=== PATIENT | female | born 1990 | race Hispanic/Latino ===

== ENCOUNTER 2025-04-03 15:18 | Emergency (ER) | payer SELFPAY ==
[2025-04-03 15:52] LABS: #Basophils 0.03 10x3/uL (0.0-0.2); #Eosinophils 0.20 10x3/uL (0.0-0.7); #Monocytes 0.54 10x3/uL (0.11-0.59); #Neutrophils 4.80 10x3/uL (1.40-6.50); %Basophils 0.4 % (0.0-1.0); %Eosinophils 2.4 % (0.0-10.0); %Lymphocytes 32.3 % (21.0-51.0); %Monocytes 6.5 % (0.0-10.0); %Neutrophils 58.2 % (42.0-75.0); Hematocrit 33.0 % (36.0-47.0); Hemoglobin 10.6 g/dL (12.0-16.0); Mean Corpuscular Hemoglobin 24.8 pg (27.0-31.0); Mean Corpuscular Volume 77.3 fL (78.0-98.0); Platelet Count 326 10x3/uL (130-400); Red Blood Cell (RBC) Count 4.27 mill/uL (4.20-5.40); White Blood Cell (WBC) Count 8.26 10x3/uL (4.8-10.8)
[2025-04-03 16:00] LABS: Bacteria/HPF None Seen HPF (None Seen); CAUTI Indications for Culture Dysuria,urgency,freq; Glucose, Urine (Dipstick) Normal (Negative); Leukocyte Negative Leu/uL (Negative); Protein, Urine (Dipstick) 100 mg/dL (Neg-Trace); RBC/HPF Greater than 50 HPF (0-3); Specific Gravity, Urine 1.013 (1.002-1.036)
[2025-04-03 16:01] LABS: BHCG - Serum POSITIVE (NEGATIVE); Pregs Control Background? CLEAR/WHITE (CLR/WHITE); Pregs Control Bar Appear? YES (CONTROL BAR)
[2025-04-03 16:08] LABS: Urine Culture Reflex No No
[2025-04-03 16:13] LABS: ALT (SGPT) 100 U/L (Less than 34); AST (SGOT) 89 U/L (11-34); Albumin 4.0 g/dL (3.1-4.5); Alkaline Phosphatase 58 U/L (40-110); Anion Gap 12 mmol/L (10-20); BUN (Urea Nitrogen) 13 mg/dL (7.0-18.7); Bilirubin, Total 0.3 mg/dL (0.3-1.2); Calc. Creatinine Clearance 0 mL/min (70-130); Calcium 8.9 mg/dL (7.8-10.44); Carbon Dioxide 23 mmol/L (22-29); Chloride 107 mmol/L (98-107); Globulin 3.3 g/dL (2.4-3.5); Glucose 94 mg/dL (70-105); Potassium 3.5 mmol/L (3.5-5.1); Sodium 138 mmol/L (136-145)
[2025-04-03] MEDS ORDERED: Acetaminophen 500 MG TAB ONE (17:35)
[2025-04-03 17:46] LABS: Hematocrit 34.1 % (36.0-47.0); Hemoglobin 10.6 g/dL (12.0-16.0)
== END 2025-04-03 18:01 | disposition home or self-care (01) ==
LOC: ERS 15:18
DX: O02.1 Missed abortion (principal); D25.9 Leiomyoma of uterus, unspecified
CPT/HCPCS: 36415; 76801; 80053; 81001; 84702; 84703; 85025; 99284